=== PATIENT | male | born 1975 | race Caucasian/White ===

== ENCOUNTER 2017-06-01 04:29 | Emergency (ER) | payer OTHER ==
[2017-06-01 06:51] LABS: CALCIUM 8.8 mg/dL (8.5-10.1); CARBON DIOXIDE 29.7 mmol/L (21-32); CHLORIDE SERUM 101 mmol/L (98-107); GFR1 > 60 mL/min; GLUCOSE SERUM 104 mg/dL (74-106); POTASSIUM SERUM 4.5 mmol/L (3.5-5.1); SODIUM SERUM 137 mmol/L (136-145)
[2017-06-01 06:55] LABS: ALBUMIN 4.2 g/dL (3.4-5.0); ALKALINE PHOSPHATASE 98 U/L (46-116); ALT/SGPT 42 U/L (16-63); AMYLASE 46 U/L (25-115); AST/SGOT 21 U/L (15-37); BILIRUBIN TOTAL 0.3 mg/dL (0.20-1.00); LIPASE 145 IU/L (73-393)
[2017-06-01 06:56] LABS: BASOPHIL % 0.4 % (0-2); PLATELET COUNT 328 x10^3mcL (130-400); RED CELL DISTRIBUTION WIDTH 13.3 % (11.5-14.5); TOTAL PROTEIN, SERUM 8.6 g/dL (6.4-8.2)
[2017-06-01 07:30] LABS: microscopic required? NO
[2017-06-01 07:39] LABS: UA SPECIFIC GRAVITY 1.025 (1.005-1.035); urine erythrocyte NEGATIVE (NEGATIVE)
[2017-06-01 09:42] VITALS: BP 125/71
== END 2017-06-01 09:42 | disposition home or self-care (01) ==
LOC: ED 04:29
PROVIDERS: Emergency Medicine
DX: K80.20 Calculus of gallbladder without cholecystitis without obstruction (principal); I10 Essential (primary) hypertension
CPT/HCPCS: J1885; J7030

== ENCOUNTER 2019-07-28 15:32 | Emergency (ER) | payer OTHER ==
[~2019-07-28] VITALS: Ht 177.8 cm; Wt 96.2 kg
[2019-07-28 15:35] VITALS: BP 115/85; Ht 177.8 cm; Wt 96.2 kg
== END 2019-07-28 18:33 | disposition home or self-care (01) ==
LOC: ED 15:32
DX: S39.012A Strain of muscle, fascia and tendon of lower back, initial encounter (principal); J02.9 Acute pharyngitis, unspecified; I10 Essential (primary) hypertension; X50.0XXA Overexertion from strenuous movement or load, initial encounter; Y93.89 Activity, other specified; Y92.89 Other specified places as the place of occurrence of the external cause; Y99.8 Other external cause status
CPT/HCPCS: J1100